=== PATIENT | male | born 1960 | race Caucasian/White ===

== ENCOUNTER 2019-05-13 07:22 | Day surgery (SDC) | payer OTHER ==
[2019-05-13] MEDS ORDERED: PROPOFOL 200 MG/20 ML BOTTLE IV ONE (07:23)
[2019-05-13] MEDS ORDERED: SEVOFLURANE 250 ML BOTTLE IH ONE (07:23)
[2019-05-13] MEDS ORDERED: CEFAZOLIN 1 G VIAL IM ONE (07:23)
[2019-05-13] MEDS ORDERED: GLYCOPYRROLATE 0.2 MG/ML VIAL IJ ONE (07:23)
[2019-05-13] MEDS ORDERED: FENTANYL CITRATE 100 MCG/2 ML AMPUL ONE ×3 (09:01→10:35)
[2019-05-13] MEDS ORDERED: MIDAZOLAM HCL 2 MG/2 ML VIAL ONE (09:02)
[2019-05-13] MEDS ORDERED: MORPHINE SULFATE PF 10 MG/10 ML AMPUL IV ONE (09:04)
[2019-05-13] MEDS ORDERED: BUPIVACAINE/EPI PF 0.25% 30 ML VIAL ONE (09:05)
[2019-05-13] MEDS ORDERED: BUPIVACAINE 0.25% 30 ML VIAL ONE (09:05)
[2019-05-13] MEDS ORDERED: SEVOFLURANE 250 ML BOTTLE ONE (09:13)
[2019-05-13] MEDS ORDERED: ONDANSETRON 4 MG/2 ML VIAL ONE (10:36)
[2019-05-13] MEDS ORDERED: HYDROCODONE/APAP 10-325 MG TABLET ONE (11:23)
== END 2019-05-13 12:20 | disposition home or self-care (01) ==
LOC: DS 07:22
PROVIDERS: ATTEND Orthopaedic Surgery
DX: S83.242A Other tear of medial meniscus, current injury, left knee, initial encounter (principal); M94.262 Chondromalacia, left knee; M65.9 Synovitis and tenosynovitis, unspecified; M19.90 Unspecified osteoarthritis, unspecified site; E78.5 Hyperlipidemia, unspecified; E11.9 Type 2 diabetes mellitus without complications; Z86.14 Personal history of Methicillin resistant Staphylococcus aureus infection; Z79.899 Other long term (current) drug therapy; Z79.84 Long term (current) use of oral hypoglycemic drugs; Z88.8 Allergy status to other drugs, medicaments and biological substances; Z83.3 Family history of diabetes mellitus; Z72.89 Other problems related to lifestyle; Z98.890 Other specified postprocedural states; X58.XXXA Exposure to other specified factors, initial encounter; Y93.89 Activity, other specified; Y92.89 Other specified places as the place of occurrence of the external cause; Y99.8 Other external cause status
CPT/HCPCS: 29876; 29881; 82962; J0690; J2250; J2274; J2405; J3010 ×3; J3490 ×2; A4663; J7030